=== PATIENT | male | born 1985 | race Caucasian/White ===

== ENCOUNTER 2017-10-16 06:46 | Observation (INO) | payer MEDICAID ==
[2017-10-16] MEDS ORDERED: NS 1,000 ML IV ONE (06:56)
--- NOTE | 2017-10-16 07:18 | CPEKG ---
Heart Rate: 78 RR Interval: 769 P-R Interval: 134 QRSD Interval: 126 QT Interval: 408 QTC Interval: 465 P Felt: 0 QRS Felt: -51 T Wave Felt: 94 EKG Severity - ABNORMAL ECG - EKG Impression: SINUS RHYTHM EKG Impression: VENT PREEXCITATION, LEFT ACCESSORY PATHWAY Electronically Signed By: Ferdinand Forbes 16-Oct-2017 07:33:17
[2017-10-16 07:35] LABS: PLATELET COUNT 149 10^3/uL (150-400)
[2017-10-16] MEDS ORDERED: LIDOCAINE 1% 300 MG/30 ML SDV ONE (08:02)
[2017-10-16] MEDS ORDERED: BUPIVACAINE 0.5% 30 ML SDV ONE (08:02)
[2017-10-16] MEDS ORDERED: HEPARIN 10,000 UNIT/10 ML MDV (1,000 UNIT/ML) ONE (08:02)
[2017-10-16] MEDS ORDERED: ISOPROTERENOL HCL/D5W 0.2 MG/50 ML BAG IV ONE (08:03)
[2017-10-16 08:11] LABS: INR 0.99 (0.83-1.16); PROTIME(PATIENT) 13.3 SEC (12.0-15.0)
[2017-10-16] MEDS ORDERED: MIDAZOLAM 2 MG/2 ML VIAL IVP ONE (08:22)
[2017-10-16] MEDS ORDERED: ACETAMINOPHEN 500 MG TAB PO PRN (08:23)
[2017-10-16] MEDS ORDERED: ONDANSETRON 4 MG/2 ML VIAL IVP PRN ×2 (08:23→11:17)
[2017-10-16] MEDS ORDERED: NALOXONE HCL 0.4 MG/ML INJ IVP PRN (08:23)
[2017-10-16] MEDS ORDERED: ALBUTEROL 3 ML DEYVIAL IH PRN (08:23)
[2017-10-16] MEDS ORDERED: fentaNYL 100 MCG/2 ML INJ IVP PRN (08:23)
--- NOTE | 2017-10-16 08:25 | PDANEPAE ---
ANE History of Present Illness WPW Ablation ANE Past Medical History - Cardiovascular History Hx Hypertension: No Hx Arrhythmias: Yes - Pulmonary History Hx COPD: No Hx Asthma/Reactive Airway Disease: Yes Hx Recent Upper Respiratory Infection: No Hx Sleep Apnea: No ANE Review of Systems Review of systems is: negative Review of Systems: - Exercise capacity Exercise capacity: >=4 METS ANE Patient History - Allergies Allergies/Adverse Reactions: No Known Allergies Allergy (Unverified 10/10/17 10:05) - Home Medications Home Medications: Diltiazem HCl [Cartia XT 180mg] 180 mg PO DAILY 10/10/17 [Last Taken 10/10/17] Fluticasone Nasal [Flonase Nasal [place] (RX)] 1 sprays NASAL DAILY 10/10/17 [ Last Taken 1 Day Ago ~10/15/17] Fluticasone/Salmeter 250/50Mcg [Advair 250/50 (*)] 1 puffs IH BID 10/10/17 [ Last Taken 1 Day Ago ~10/15/17] - Smoking Hx Smoking Status: Never smoked ANE Labs/Vital Signs - Labs Result Diagrams: 10/16/17 07:15 10/16/17 07:15 - Vital Signs Height: 190.5 cm Weight: 117.934 kg ANE Physical Exam - Airway Neck exam: FROM Mallampati Score: Class 2 Mouth exam: normal dental/mouth exam - Pulmonary Pulmonary: clear to auscultation - Cardiovascular Cardiovascular: regular rate and rhythym - ASA Status ASA Status: II ANE Anesthesia Plan Anesthesia Plan: general endotracheal anesthesia
--- NOTE | 2017-10-16 08:25 | PDGENHP ---
History & Physical Chief Complaint: palpitations History of Present Illness: wpw syndrome Relevant Physical Exam: [id number] cta ao3 Cardiorespiratory Assessment: wpw syndrome, for ablation
[2017-10-16] MEDS ORDERED: PROPOFOL/EMULSION 500 MG/50 ML BOTTLE IV ONE (08:33)
[2017-10-16] MEDS ORDERED: fentaNYL 100 MCG/2 ML INJ ONE (08:34)
[2017-10-16] MEDS ORDERED: ROCURONIUM 50 MG/5 ML VIAL ONE ×2 (08:35→10:22)
[2017-10-16] MEDS ORDERED: SEVOFLURANE 250 ML BOTTLE IH ONE (08:43)
[2017-10-16] MEDS ORDERED: DEXAMETHASONE 4 MG/ML VIAL ONE ×2 (09:19)
[2017-10-16] MEDS ORDERED: PHENYLEPHRINE HCL 100 MCG/ML SYR ONE (09:19)
[2017-10-16] MEDS ORDERED: ONDANSETRON 4 MG/2 ML VIAL ONE (09:19)
[2017-10-16] MEDS ORDERED: HEPARIN/DEXTROSE 25,000 UNIT/500 ML BAG ONE (09:28)
[2017-10-16] MEDS ORDERED: SUGAMMADEX SODIUM 200 MG/2 ML VIAL IVP ONE (10:42)
[2017-10-16] MEDS ORDERED: ADENOSINE 6 MG/2 ML VIAL ONE (10:57)
[2017-10-16] MEDS ORDERED: PROTAMINE SULFATE 50 MG/5 ML VIAL IVP ONE (11:02)
--- NOTE | 2017-10-16 11:16 | EPPROC ---
Electrophysiology Procedure Note: ELECTROPHYSIOLOGIC STUDY AND CATHETER MEDIATED ABLATION OF LEFT POSTERIOR ACCESSORY PATHWAY Procedures performed: 94757-44 EP evaluation with RA/RV/LA pace/record, with arrhythmia induction 06919-75 EP evaluation with RA/RV pace record, insert/reposition catheter, with arrhythmia induction 42125 Intracardiac catheter ablation, SVT arrhythmogenic focus 93402 3D mapping Fluoroscopy 57243 Intracardiac echocardiogram 45527-17 Transseptal puncture INDICATION: WPW PROCEDURE: Catheters and anesthesia: The patient arrived in the Electrophysiology Laboratory in the fasting state. The right clavicular region, right groin, and left groin area were prepped and draped in the usual sterile manner. Anesthesiologist Dr. Clementina Deluna administered general anesthesia. Appropriate non-invasive blood pressure, pulse oximetry and end-tidal CO2 monitoring was established. All catheters were placed percutaneously using the modified Seldinger technique , and advanced into position under fluoroscopic guidance. One #6 Albanian hexapolar non-deflectable electrode catheter was inserted into the right atrial appendage via the left femoral vein (2mm spacing; except the proximal ring which was 25cm from the tip used for unipolar recordings). One #7 Albanian deflectable octapolar electrode catheter was advanced to the His-bundle position via the left femoral vein (2mm spacing). One #7 Albanian deflectable quadrapolar catheter was advanced to the anteroseptal right ventricle via the left femoral vein. One #7 Albanian deflectable catheter with 10 pairs of electrodes was placed via the right femoral vein along the tricuspid annulus and proximal CS (Ramonita catheter could not be advanced into the CS). Programmed stimulation of the right atrium, right ventricle and coronary sinus ( left atrium) was performed. Parahisian pacing demonstrated two patterns of retrograde atrial activation during His bundle capture and loss of His bundle capture. This demonstrated the presence of an accessory pathway ( 0500 oclock at the mitral annulus as seen in the BULGARIAN view). 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 In preparation for ablation of the left posterior accessory pathway a transeptal puncture was performed under fluoroscopic and hemodynamic guidance. Intracardiac echocardiography was used during the procedure. Mean left atrial pressure was 10 mm Hg mmHg. A SL1 sheath was inserted into the left atrium. The patient was administered IV heparin bolus and IV heparin continuous infusion prior to the transseptal puncture and the activated clotting time was maintained ~ 300 seconds during the remainder of the procedure. One #7 Albanian mapping catheter with a 4 mm tip electrode and a sensor for the [id number] mapping system was inserted into the SL1 sheath and advanced to the left atrium. Mapping was perfomed during V pacing. A sharp retrograde accessory pathway potential was recorded at 0500 oclock at the mitral annulus as seen in the BULGARIAN view. This preceded the earliest atrial activation by annulus ms. RF#1 was not successful due to catheter instability, was terminated after 10 seconds. RF#2 blocked conduction over AP in 2.5 seconds of initiation of ablation. Additional RF 2-4 were delivered slightly anterior and posterior to RF1 site. Programmed stimulation from the RA, CS, right ventricle during the baseline state post ablation and during infusion of isoproterenol 2 and 4 mcg/min confirmed that there was no conduction over the left posterior accessory pathway and no orthodromic AVRT could be induced. Adenosine 12 mg was administered, there was complete heart block with adenosine , proving there was no antegrade conduction over accessory pathway The catheters were removed. Long sheath was exchanged for short sheath. Protamine was administered. The patient was transferred to the cardiovascular holding area in stable condition. Vascular access sheaths were removed in the laboratory courier post pursestring suture. There were no apparent complications. Results: A. Spontaneous Intervals: Pre ablation SCL 690 ms AH 85 ms HV 20 ms Post ablation SCL 610 ms AH 75 ms HV 40 ms B. Antegrade AV lexii function (decremental pacing) Post ablation FPERP 340 ms WBB CL 330 ms C. Retrograde AV lexii function (decremental pacing) D. Accessory pathway function 1. A single AV accessory pathway was identified at the mitral annulus at 0500 oclock as seen in the BULGARIAN view. 2. The AV accessory pathway conducted in the antegrade and retrograde directions. During atrial pacing 1:1 conduction over the accessory pathway was maintained to a cycle length of 300 ms, block over the AP occurred at 290 ms. During ventricular pacing 1:1 conduction over the accessory pathway was maintained to a cycle length of 280 ms, block over the AP occurred at 270 ms. E. Arrhythmias: 1. Atrial premature beats induced orthodromic AV reentrant tachycardia using the left posterior accessory AV pathway. Tachycardia cycle length: 280 ms AH interval 70 ms HV interval 40ms VA interval (His) 170 ms Shortest VA interval 85 ms at 0500 o clock mitral annulus CONCLUSIONS: 1. A single left posterior accessory pathway, which exhibited conduction in the antegrade and retrograde directions. 2. 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 3. Successful ablation of the left posterior accessory pathway with elimination of AV reentrant tachycardia. 4. No apparent complications. Patient Problems: Problems Problem Status Onset Aowzf-Ukyrwzaqc-Xkczd syndrome Acute
[2017-10-16] MEDS ORDERED: ACETAMINOPHEN 325 MG TAB PO PRN (11:17)
--- NOTE | 2017-10-16 11:25 | POSTANESTH ---
Post Anesthetic Evaluation Cardiovascular Status: Normal, Stable Respiratory Status: Normal, Stable Level of Consciousness/Mental Status: Can Participate in Eval, Alert and Oriented Pain Control: Adequate, Prn Tx Ordered Nausea/Vomiting Control: Adequate, Prn Tx Ordered Complications Possibly Related to Anesthesia: None Noted
--- NOTE | 2017-10-16 12:48 | CPEKG ---
Heart Rate: 79 RR Interval: 759 P-R Interval: 192 QRSD Interval: 92 QT Interval: 408 QTC Interval: 468 P Shannon: 68 QRS Shannon: 35 T Wave Shannon: -29 EKG Severity - ABNORMAL ECG - EKG Impression: SINUS RHYTHM EKG Impression: NONSPECIFIC T ABNORMALITIES, INFERIOR LEADS EKG Impression: ST ELEV, PROBABLE NORMAL EARLY REPOL PATTERN EKG Impression: Ventricular pre-excitation seen on previous EKG not seen. T-wave abnormalities EKG Impression: are likely related to T-wave memory Electronically Signed By: Ferdinand Forbes 16-Oct-2017 12:59:31
--- NOTE | 2017-10-16 14:35 | ASMTCMCOM ---
CM Note CM Note Notes: Pt is admitted for wpw syndrome and ablation. Anticipate d/c with no CM needs but will continue to follow for any change in needs. Date Signed: 10/16/2017 02:34 PM Electronically Signed By:QUINN Moya
[2017-10-16] MEDS: FLUTICASONE/SALMETER 250/50MCG DISKUS IH SCH (21:00)
[2017-10-16] MEDS ORDERED: POLYETHYLENE GLYCOL 3350 17 GM PKT PO PRN (21:15)
[2017-10-16] MEDS ORDERED: BISACODYL 10 MG SUPP PR PRN (21:15)
[2017-10-16] MEDS ORDERED: MAGNESIUM HYDROXIDE 30 ML UDCUP PO PRN (21:15)
[2017-10-16] MEDS ORDERED: LACTULOSE 20 GM/30 ML UDCUP PO PRN (21:15)
[2017-10-17 04:23] LABS: PLATELET COUNT 146 10^3/uL (150-400)
[2017-10-17 04:30] VITALS: RESP 18
[2017-10-17 04:34] LABS: CREATINE KINASE 78 IU/L (0-224)
[2017-10-17 04:42] LABS: INR 1.05 (0.83-1.16); PROTIME(PATIENT) 13.9 SEC (12.0-15.0)
[2017-10-17 07:38] VITALS: BP 106/55; PULSE 76; TEMP 98.4; O2SAT 94
--- NOTE | 2017-10-17 08:54 | CPEKG ---
Heart Rate: 82 RR Interval: 732 P-R Interval: 196 QRSD Interval: 92 QT Interval: Invalid QTC Interval: Invalid P [place]: 44 QRS [place]: 25 T Wave [place]: -12 EKG Severity - ABNORMAL ECG - EKG Impression: SINUS RHYTHM EKG Impression: NONSPECIFIC T ABNORMALITIES, INFERIOR LEADS EKG Impression: No ventricular preexcitation Electronically Signed By: Ferdinand Forbes 17-Oct-2017 10:26:41
[2017-10-17] MEDS ORDERED: SENNOSIDES/DOCUSATE SODIUM TAB PO SCH (09:00)
[2017-10-17] MEDS ORDERED: ASPIRIN 81 MG CHEWABLE TAB PO SCH (09:00)
[2017-10-17] MEDS ORDERED: FLUTICASONE NASAL 120 SPRAYS/16 GM MDI EACHNARE SCH (09:00)
[2017-10-17] MEDS: FLUTICASONE/SALMETER 250/50MCG DISKUS IH SCH (09:01)
[2017-10-17] MEDS ORDERED: FLU VACC QS 2017-18 (3YR+)/PF 0.5 ML SYR (FLUARIX QUAD) IM ONE (09:27)
--- NOTE | 2017-10-17 10:26 | ECHO ---
[email or web address] [address] [address] Main: [phone] Fax: Transthoracic Echocardiogram Name: MEAGAN TAVERAS MR#: [id number] Study Date: 10/17/2017 Study Time: 08:27 AM Date of : 1985 Age: 32 year(s) Height: 190.5 cm (75 in.) Weight: 117.94 kg (260 lb.) BSA: 2.45 m2 Gender: Male Examination: Echo Indication: F/U post EP study Image Quality: Contrast: Requested by: Ferdinand Forbes BP: 106 mmHg/55 mmHg Heart Rate: Rhythm: Indication: F/U post EP study Procedure Staff Mold Dumper: Jazzy Chew RDCS Reading Physician: Ferdinand Forbes Requesting Provider: Conclusions: Normal global systolic LV function. Trivial to mild mitral regurgitation. Trivial to mild tricuspid valve regurgitation. No pericardial effusion. Measurements: Chambers Valvular Assessment AV/MV Valvular Assessment TV/PV Normal Normal Normal Name Value Range Name Value Range Name Value Range Ao Luz Elena (MM): 3.5 cm (2.2 cm-3.7 AV Vmax: 1.24 m/s (1 m/s-1.7 cm) m/s) IVSd (2D): 0.8 cm (0.6 cm-1.1 AV maxP mmHg ( - ) cm) MV E Vmax: 0.80 m/s ( - ) LVDd (2D): 5.9 cm (4.2 cm-5.9 MV A Vmax: 0.46 m/s ( - ) cm) MV E/A: 1.74 ( - ) LVDs (2D): 4.0 cm (2.1 cm-4 cm) LVPWd (2D): 0.7 cm (0.6 cm-1 cm) LVEF (MOD4): 68 % (>=55 %) EF Range: 65-70 % Continued Measurements: Chambers Valvular Assessment AV/MV Name Value Name Value LADs: 4.2 cm MV E' Septal: 0.07 m/s LADs Lon.4 cm MV E/E' Septal: 11.00 LA Area: 18.8 cm2 MV E/E' Lateral: 5.20 Patient: MEAGAN TAVERAS Study Date: 10/17/2017 Page 1 of 2 08:27 AM Additional Vessels Name Value Ao Ascendin.0 cm Findings: Left Ventricle: Normal size left ventricle. No LV hypertrophy. Normal global systolic LV function. The ejection fraction is estimated to be 65-70 %. No regional wall motion abnormality. Right Ventricle: Normal size right ventricle. Left Atrium: The left atrium is normal in size. Right Atrium: The right atrium is normal in size. Mitral Valve: The mitral valve is normal in appearance and function. Trivial to mild mitral regurgitation. Aortic Valve: The aortic valve is normal in appearance and function. Tricuspid Valve: The tricuspid valve is normal in appearance and function. Trivial to mild tricuspid valve regurgitation. Pulmonic Valve: The pulmonic valve is normal in appearance and function. Trivial pulmonic valve regurgitation. Aorta: The aorta is normal. Pericardium: No pericardial effusion. (No Signature Object) Patient: MEAGAN TAVERAS Study Date: 10/17/2017 Page 2 of 2 08:27 AM [id number]
--- NOTE | 2017-10-17 10:45 | ASMTLACE ---
LACE Length of stay for Answers: Less than 1 day current admission Acuity / Level of Answers: No Care: Did the patient have an inpatient admission? Comorbidities - select Answers: Other all that apply # of Emergency department Answers: 0 visits in the last 6 months Score: 1 Date Signed: 10/17/2017 10:44 AM Electronically Signed By:Holly Correa RN
--- NOTE | 2017-10-17 10:48 | GDS ---
[f rep st] DISCHARGE SUMMARY ADMISSION DIAGNOSES: 1. Chxld-Zamshgojo-Lbepm. 2. Asthma. DISCHARGE DIAGNOSIS: 1. Txkdz-Aqdgzelgb-Slpjm. 2. Status post electrophysiology study with ablation for Zjdmo-Tgxbiqvbw-Aqgga. 3. Asthma. PROCEDURE PERFORMED DURING HOSPITALIZATION: 1. Electrocardiogram. 2. Electrophysiology study, which found a single left posterior accessary pathway, which exhibited conduction in the antegrade and retrograde direction. 3. Successful ablation of the left posterior accessory pathway with the elimination of arteriovenous reentry tachycardia. 4. Echocardiogram. BRIEF HISTORY: Please see H and P. Briefly, the patient is a 32-year-old male , recent hospitalization at [facility] for asthma exacerbation, and developed a supraventricular tachycardia with rates up to 200 beats per minute. He received 2 boluses of adenosine to terminate the arrhythmia. He was sent by the Emergency Department to Cardiology for further evaluation. After reviewing electrocardiogram, Dr. Forbes determined the patient had delta waves in V1 through V6, making more than likely his arrhythmia was caused by WPW syndrome. Options of treatment including medication and antiarrhythmic therapy and ablation were discussed with the patient. The patient wanted to proceed with EP and potential ablation procedure. HOSPITAL COURSE: The patient admitted through CVC, prepped for procedure, and taken to electrophysiology lab. There, Dr. Forbes performed EP procedure, successfully identifying a single left posterior accessary pathway which exhibit conduction in the antegrade and retrograde direction. At this point, he was able to ablate this pathway, which eliminated arteriovenous reentry tachycardia. No complications. The patient was transferred back to the CVC, and ultimately to the PCU for overnight observation. There, he has remained in sinus rhythm with no malignant arrhythmias or pauses. He denies any chest pain or shortness of breath. He has been up and walking the unit without any difficulties. PHYSICAL EXAMINATION: GENERAL APPEARANCE TODAY: Medium built, mildly obese, male. He is alert and oriented to person, place, time, situation. Appears to be under no acute distress. CURRENT VITAL SIGNS: Blood pressure 106 /55, heart rate of 76, respirations 18, saturating 94% on room air, temperature of 36.9 degrees Celsius. HEENT: Head is normocephalic. Lips and tongue are pink and moist with no signs of cyanosis. Conjunctivae pink. NECK: Trachea is midline, +2 carotid pulses bilateral. No auscultated bruits. No jugular vein distention. RESPIRATORY: Lungs clear to auscultation. No rhonchi, rales or wheezes. No accessory muscle use. No intercostal muscle retraction noted. CARDIAC: Regular rate, regular rhythm, S1, S2. No S3, S4, gallops, rubs or murmurs noted. ABDOMEN: Soft, nontender, bowel sounds x4 quadrants. No organomegaly. No palpable masses. SKIN: [place], warm, dry. No cyanosis. No clubbing. No peripheral edema. VASCULAR: +2 carotids bilateral, +2 radials bilateral, +1 dorsal pedal and posterior tibial pulses bilateral. : Catheter insertion sites, right and left groin sites, with no redness, swelling , drainage, ecchymosis, or hematoma. No auscultated bruit noted over either site. LABORATORY STUDIES: Laboratory studies drawn today show WBC of 9.14, hemoglobin of 15.0, hematocrit 43.9, platelet count 146. INR was noted to be 1.05, sodium 141, potassium 4.6, chloride 106, CO2 26, BUN 16, creatinine 0.9, glucose 99, calcium 8.7. CK of 78, CK-MB of 1.21, troponin of 0.307 noted. Expected to have elevated cardiac enzymes post electrophysiology and ablation procedure. STUDIES: EP and ablation procedure as mentioned above. Morning electrocardiogram shows sinus rhythm, nonspecific T-wave abnormalities in inferior leads, no delta waves noted at this time. Preliminary echocardiogram done this morning post ablation showing normal LV systolic function, normal ejection fraction, no wall motion abnormalities, no pleural effusion. DISCHARGE DISPOSITION: The patient will be discharged home in stable condition. He is under activity restrictions of not lifting more than 10 pounds for the next week, and no strenuous activity for the next 2 weeks. DISCHARGE MEDICATIONS: Please see discharge med reconciliation sheet. The patient notes that he has been discontinued on his home diltiazem. He has been started on aspirin therapy at 81 mg p.o. daily, which he will take for the next 6 weeks. DISCHARGE INSTRUCTIONS: Post EP/ablation discharge instructions went over with the patient and his family, including monitoring for signs of infection bleeding precautions, activity restrictions, medication compliancy, DVT precautions. He has also been encouraged to continue using incentive spirometer for the next 2 days while awake. He has been reminded that due to recent ablation puts him in a higher coagulation state, and so he has been encouraged for every 35-45 minutes while awake. He is supposed to get up and walk for few minutes. At the time of discharge, the patient verbalizes understanding of all discharge instructions, and has no questions. He has a followup appointment set with Dr. Forbes on November 16. He has been told that if any problems or concerns post discharge, he is to notify our office or return to the hospital. At the time of discharge, no questions or concerns. Total time spent on discharge greater than 30 minutes. /[id number]/MODL MTDD
--- NOTE | 2017-10-17 13:35 | ASDISCHSUM ---
Discharge Information Plan Status:Home with No Needs Medically Cleared to Leave:10/16/2017 Discharge Date:10/17/2017 10:48 AM CM D/C Disposition:Home, Routine, Self-Care ADT D/C Disposition:Home, Routine, Self-Care Projected Discharge Date:10/17/2017 10:48 AM Transportation at D/C: Discharge Delay Reason: Follow-Up Date:10/17/2017 10:48 AM Discharge Slot: Final Diagnosis: Placement Information Patient Contact Information Contact Name:SADAF Relationship:Father Address: Work Phone: City: [facility] Phone: State/[place] Code: Email: Financial Information Financial Class: Primary Plan Desc:[employer] [place] Primary Plan Number:[id number] Secondary Plan Desc: Secondary Plan Number: Assessment Information [facility] CM Progress Note CM Note CM Note Notes: Pt is admitted for wpw syndrome and ablation. Anticipate d/c with no CM needs but will continue to follow for any change in needs. Date Signed: 10/16/2017 02:34 PM Electronically Signed By:QUINN Moya LACE LACE Length of stay for Answers: Less than 1 day current admission Acuity / Level of Answers: No Care: Did the patient have an inpatient admission? Comorbidities - select Answers: Other all that apply # of Emergency department Answers: 0 visits in the last 6 months Score: 1 Date Signed: 10/17/2017 10:44 AM Electronically Signed By:Holly Correa RN Intervention Information
== END 2017-10-17 10:48 | disposition home or self-care (01) ==
LOC: FCATH 06:46 → F2W 11:19
PROVIDERS: ADMIT Internal Medicine Cardiovascular Disease; ATTEND Internal Medicine Cardiovascular Disease
PROC: 4A023FZ Measurement of Cardiac Rhythm, Percutaneous Approach (ICD-10-PCS; principal; 2017-10-16)
PROC: 02K83ZZ Map Conduction Mechanism, Percutaneous Approach (ICD-10-PCS; principal; 2017-10-16)
PROC: 5A1213Z Performance of Cardiac Pacing, Intermittent (ICD-10-PCS; principal; 2017-10-16)
DX: I45.6 Pre-excitation syndrome (principal); J45.909 Unspecified asthma, uncomplicated
CPT/HCPCS: 90471; 93005; 93306; 93613; 93621; 93623; 93653; 93662; C1730; C1732; C1893; C1731; C1759; G0008; J0153; J1100; J1644; J2250; J2370; J2405; J2704; J2720; J3010

== ENCOUNTER 2017-10-23 12:44 | Emergency (ER) | payer MEDICAID ==
--- NOTE | 2017-10-23 12:50 | CPEKG ---
Heart Rate: 90 RR Interval: 667 P-R Interval: 192 QRSD Interval: 96 QT Interval: 364 QTC Interval: 446 P Freeland: 45 QRS [place]eland: 26 T Wave Freeland: 52 EKG Severity - NORMAL ECG - EKG Impression: SINUS RHYTHM Electronically Signed By: Ferdinand Forbes 27-Oct-2017 14:38:22
--- NOTE | 2017-10-23 13:29 | EDPHY ---
H & P Stated Complaint: resolved CP Time Seen by Provider: 10/23/17 12:53 HPI/ROS: CHIEF COMPLAINT: Brief chest pain following ablation HISTORY OF PRESENT ILLNESS: This is a 32-year-old male who underwent an ablation for Dlakp-Rhtmrsudf-Ohfya 1 week ago. The procedure was performed by Dr. Forbes. He had been doing well since then. Today he returned to work. 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 He had 2 brief pinching sensations in the left upper chest, about 2 in below his collar bone in the midline. He also had a third similar sensation--lower in the left chest; this one was so brief that he is not sure it even happened. He has not had any further chest discomfort. He did not feel short of breath, sick to his stomach , or diaphoretic when this occurred. He did not feel lightheaded or dizzy. He has not been aware of any cardiac arrhythmia. He was transported to the emergency department by ambulance. He currently feels fine, aside from being tired. REVIEW OF SYSTEMS: A ten point review of systems was performed and is negative with the exception of the items mentioned in the HPI. 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 No tobacco use. General Appearance: Alert. Vital signs reviewed. Blood pressure 134/80. Eyes: Pupils equal and round, no conjunctival injection, no discharge. Anicteric. ENT, Mouth: Mucous membranes are moist, no oropharyngeal erythema or edema. Neck: No lymphadenopathy, supple. No JVD. Respiratory: Lungs are clear to auscultation; no wheezes, rales, or rhonchi. Cardiovascular: Regular rate and rhythm; no murmur, rub, or gallop. Gastrointestinal: Abdomen is soft and nontender, no masses or organomegaly, bowel sounds normal. Skin: Warm and dry, no rashes on exposed skin, normal color. Back: Nontender to palpation over the thoracolumbar spine. No CVAT. Extremities: No lower extremity edema, no calf tenderness or swelling. Neurological: Alert and oriented. Moving all four extremities easily and equally. Psychiatric: Normal affect. - Personal History Current Tetanus/Diphtheria Vaccine: Yes Current Tetanus Diphtheria and Acellular Pertussis (TDAP): Yes - Medical/Surgical History Hx Asthma: Yes Hx Chronic Respiratory Disease: No Hx Diabetes: No Hx Cardiac Disease: Yes Hx Renal Disease: No Hx Cirrhosis: No Hx Alcoholism: No Hx HIV/AIDS: No Hx Splenectomy or Spleen Trauma: No Other PMH: Asthma, WPW, ablation a week ago, depression as a teenager - Social History Smoking Status: Never smoked Constitutional: Initial Vital Signs Temperature (C) 36.9 C 10/23/17 12:44 Heart Rate 85 10/23/17 12:44 Respiratory Rate 12 10/23/17 12:44 Blood Pressure 134/80 H 10/23/17 12:44 O2 Sat (%) 97 10/23/17 12:44 O2 Delivery Mode Room Air Allergies/Adverse Reactions: No Known Allergies Allergy (Unverified 10/10/17 10:05) Home Medications: Medication Instructions Recorded Fluticasone Nasal [Flonase Nasal 1 sprays NASAL DAILY 10/10/17 [place]] Fluticasone/Salmeter 250/50Mcg 1 puffs IH BID 10/10/17 [Advair 250/50 (*)] Acetaminophen [Tylenol 325mg (*)] 325 - 650 mg PO Q4HRS PRN tab 10/17/17 Aspirin [Aspirin 81mg (*)] 81 mg PO DAILY tab.chew 10/17/17 Medical Decision Making - Diagnostics EKG Interpretation: 12 lead EKG is interpreted in Trace master View by emergency department physician. Sinus rhythm rate of 90. ED Course/Re-evaluation: EKG shows NSR at 90, no ischemic changes. Patient without chest pain in ED. He had two brief episodes of pain, no other associated symptoms. I do not suspect a cardiac etiology and do not think that his recent ablation is the cause of this pain. The pain was likely musculoskeletal. He has no signs/symptoms of infection and I am not concerned about pneumonia or bronchitis. PE is highly unlikely with this presentation-- he is low risk. I feel that he can safely return home with no further ED evaluation. He understands the danger signs that should prompt him to return. He will follow up with cardiology as planned. Differential Diagnosis: Chest pain including but not limited to myocardial ischemia, pulmonary embolus, chest wall pain, pleural inflammation and pulmonary infectious causes. - Data Points Laboratory Results: Laboratory Results 10/23/17 12:44 10/23/17 12:44 Departure - Departure Disposition: Home, Routine, Self-Care Clinical Impression: Chest pain Qualifiers: Chest pain type: other chest pain Qualified Code(s): R07.89 - Other chest pain Condition: Good Instructions: Noncardiac Chest Pain (ED) Additional Instructions: Follow up with Dr. Forbes as planned. Referrals: Ferdinand Forbes MD [Medical Doctor] - As per Instructions Stand Alone Forms: Work Excuse
[2017-10-23 13:34] LABS: PLATELET COUNT 139 10^3/uL (150-400)
[2017-10-23 14:55] VITALS: BP 118/78; PULSE 80; RESP 18; TEMP 98.1; O2SAT 98
== END 2017-10-23 14:55 | disposition home or self-care (01) ==
LOC: EDUNIT#
DX: R07.89 Other chest pain (principal); J45.909 Unspecified asthma, uncomplicated; Z79.82 Long term (current) use of aspirin

== ENCOUNTER 2017-12-07 22:44 | Emergency (ER) | payer MEDICAID ==
[2017-12-07 22:51] VITALS: BP 143/92; PULSE 90; RESP 16; TEMP 97.3; O2SAT 94
--- NOTE | 2017-12-07 22:51 | EDPHY ---
H & P Stated Complaint: red and discoloration in groin area Time Seen by Provider: 12/07/17 22:50 HPI/ROS: HPI CHIEF COMPLAINT: Red irritation to the right inguinal region. HISTORY OF PRESENT ILLNESS: This patient 32-year-old male, is otherwise healthy does have remote history of WPW status post ablation in September he presents emergency room with a rash to his right groin region. States started bothering worse tonight movie theater he decided come the emergency room to have this evaluated. It is right inguinal fold he has a yeast infection it is present with some erythema. Past Medical History: Denies significant medical history except for WPW. Past Surgical History: Denies significant surgical history Social History: Denies drugs alcohol tobacco. Family History: Noncontributory ROS REVIEW OF SYSTEMS: A comprehensive 10 point review of systems is otherwise negative aside from elements mentioned in the history of present illness. Exam Constitutional appears well nontoxic no acute distress triage nursing summary reviewed, vital signs reviewed, awake/alert. Eyes normal conjunctivae and sclera, EOMI, PERRLA. HENT normal inspection, atraumatic, moist mucus membranes, no epistaxis, neck supple/ no meningismus, no raccoon eyes. Respiratory clear to auscultation bilaterally, normal breath sounds, no respiratory distress, no wheezing. Cardiovascular rate normal, regular rhythm, no murmur, no edema, distal pulses normal. Gastrointestinal soft, non-tender, no rebound, no guarding, normal bowel sounds, no distension, no pulsatile mass. Genitourinary no CVA tenderness. Musculoskeletal no midline vertebral tenderness, full range of motion, no calf swelling, no tenderness of extremities, no meningismus, good pulses, neurovascularly intact. Skin right inguinal region: Shows area of 4 cm x 4 cm of yeast. Erythematous with some white discharge. No signs of cellulitis purpura petechia. Neurologic awake, alert and oriented x 3, AAOx3, moves all 4 extremities equally, motor intact, sensory intact, CN II-XII intact, normal cerebellar, normal vision, normal speech. Psychiatric normal mood/affect. Heme/Lymph/Immune no lymphadenopathy. Differential Diagnosis: Includes but is not limited to in a particular order inguinal yeast infection, cellulitis Medical Decision Making: Plan for this patient will placed on Diflucan p. O., and clotrimazole cream. Recommends keep it dry and clean as much as possible. Source: Patient - Personal History Current Tetanus/Diphtheria Vaccine: Yes Current Tetanus Diphtheria and Acellular Pertussis (TDAP): Yes - Medical/Surgical History Hx Asthma: Yes Hx Chronic Respiratory Disease: No Hx Diabetes: No Hx Cardiac Disease: Yes Hx Renal Disease: No Hx Cirrhosis: No Hx Alcoholism: No Hx HIV/AIDS: No Hx Splenectomy or Spleen Trauma: No Other PMH: Asthma, WPW, ablation a week ago, depression as a teenager - Social History Smoking Status: Never smoked Constitutional: Initial Vital Signs Temperature (C) 36.3 C 12/07/17 22:48 Heart Rate 90 12/07/17 22:48 Respiratory Rate 16 12/07/17 22:48 Blood Pressure 143/92 H 12/07/17 22:48 O2 Sat (%) 94 12/07/17 22:48 O2 Delivery Mode Room Air Allergies/Adverse Reactions: No Known Allergies Allergy (Verified 12/07/17 22:50) Home Medications: Medication Instructions Recorded Fluticasone Nasal [Flonase Nasal 1 sprays NASAL DAILY 10/10/17 [place]] Fluticasone/Salmeter 250/50Mcg 1 puffs IH BID 10/10/17 [Advair 250/50 (*)] Acetaminophen [Tylenol 325mg (*)] 325 - 650 mg PO Q4HRS PRN tab 10/17/17 Aspirin [Aspirin 81mg (*)] 81 mg PO DAILY tab.chew 10/17/17 Clotrimazole 1% [Lotrimin 1%] 12 gm TP BID #1 cream 12/07/17 Fluconazole [Diflucan] 200 mg PO DAILY #7 tablet 12/07/17 Departure - Departure Disposition: Home, Routine, Self-Care Clinical Impression: Yeast infection Condition: Good Instructions: Yeast Infection (ED) Additional Instructions: 1. Keep this area dry and clean as much as possible. Referrals: Barb Mueller PA [Primary Care Provider] - As per Instructions Prescriptions: Clotrimazole 1% [Lotrimin 1%] 12 gm TP BID #1 cream Fluconazole [Diflucan] 200 mg PO DAILY #7 tablet
[2017-12-07] MEDS ORDERED: FLUCONAZOLE 150 MG TAB PO ONE (22:57)
== END 2017-12-07 23:09 | disposition home or self-care (01) ==
DX: B37.9 Candidiasis, unspecified (principal); J45.909 Unspecified asthma, uncomplicated; Z79.82 Long term (current) use of aspirin

== ENCOUNTER 2017-12-18 12:28 | Emergency (ER) | payer MEDICAID ==
[2017-12-18] MEDS ORDERED: IPRATROPIUM/ALBUTEROL 3 ML DEYVIAL ONE (13:01)
[2017-12-18] MEDS ORDERED: IPRATROPIUM/ALBUTEROL 3 ML DEYVIAL IH ONE (13:01)
[2017-12-18] MEDS ORDERED: ALBUTEROL 3 ML DEYVIAL IH ONE (13:45)
--- NOTE | 2017-12-18 14:22 | EDPHY ---
H & P Time Seen by Provider: 12/18/17 12:44 HPI/ROS: CHIEF COMPLAINT: Asthma HISTORY OF PRESENT ILLNESS: 32-year-old male presents to the emergency department feeling short of breath. He has a known history of asthma. 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 He did not have any pain in his chest. He denies a headache or other URI symptoms. No fevers or chills. He did try using his albuterol inhaler without relief. No recent travel. No calf pain or swelling. No pleuritic chest pain. REVIEW OF SYSTEMS: Constitutional: No fever, no chills. Eyes: No double or blurry vision. ENT: No sore throat. Respiratory: Cough, shortness of breath Cardiac: No chest pain. Gastrointestinal: No abdominal pain, vomiting or diarrhea. Genitourinary: No dysuria. Musculoskeletal: No neck or back pain. Skin: No rashes. Neurological: No headache. Past Medical/Surgical History: Asthma Social History: Single and lives in [place]. Smoking Status: Never smoked Physical Exam: General Appearance: Alert, no distress. 92% on room air. Afebrile. Eyes: Pupils equal and round. Extraocular motions are all intact. ENT: Mouth: Mucous membranes moist. Respiratory: Diffuse expiratory rhonchi throughout. No rales. No respiratory distress. Cardiovascular: Regular rate and rhythm. Gastrointestinal: Abdomen is soft and nontender, no masses, no rebound or guarding, bowel sounds normal. Neurological: Alert and oriented x 3, cranial nerves II through XII grossly intact Skin: Warm and dry, no rashes. Musculoskeletal: Nontender to palpate along the cervical, thoracic or lumbar spine. Neck is supple. Extremities: Full range of motion and no peripheral edema. Psychiatric: Patient is oriented X 3, there is no agitation. Constitutional: Initial Vital Signs Temperature (C) 36.5 C 12/18/17 12:32 Heart Rate 96 12/18/17 12:32 Respiratory Rate 20 12/18/17 12:32 Blood Pressure 117/78 12/18/17 12:32 O2 Sat (%) 92 12/18/17 12:32 O2 Delivery Mode Room Air Allergies/Adverse Reactions: No Known Allergies Allergy (Verified 12/18/17 12:31) Home Medications: Medication Instructions Recorded Fluticasone Nasal [Flonase Nasal 1 sprays NASAL DAILY 10/10/17 [place]] Fluticasone/Salmeter 250/50Mcg 1 puffs IH BID 10/10/17 [Advair 250/50 (*)] Acetaminophen [Tylenol 325mg (*)] 325 - 650 mg PO Q4HRS PRN tab 10/17/17 Aspirin [Aspirin 81mg (*)] 81 mg PO DAILY tab.chew 10/17/17 Albuterol [Proventil Inhaler HFA 1 - 2 puffs IH Q4PRN PRN #1 mdi 12/18/17 (*)] Xopenex 12/18/17 predniSONE 60 mg PO DAILY 5 Days tab 12/18/17 Medical Decision Making - Diagnostics Imaging Results: Imaging Impressions Chest X-Ray 12/18/17 13:17 Impression: Mild airways disease. No pneumonia. Imaging: I viewed and interpreted images myself ED Course/Re-evaluation: 32-year-old male presents to the emergency department feeling short of breath. The patient was given DuoNeb followed by albuterol nebulizer. He was feeling much better. He still continued to have occasional expiratory wheezing. Chest x-ray was ordered by the nurse which revealed no evidence of pneumonia. Patient will continue his albuterol inhaler. We will add prednisone. I do not think antibiotics are indicated. He has no evidence of pneumonia on his chest x -ray. He is afebrile. The patient was tolerating p.o. Fluids he is comfortable being discharged home. Differential Diagnosis: Shortness of breath including but not limited to pulmonary infectious process, COPD, asthma, pulmonary embolus and congestive heart failure. - Data Points Medications Given: Discontinued Medications Albuterol (Proventil Neb) 3 ml IH EDNOW ONE Stop: 12/18/17 13:46 Last Admin: 12/18/17 13:54 Dose: 3 ml Albuterol/Ipratropium (Duoneb) 3 ml IH EDNOW ONE Stop: 12/18/17 13:02 Last Admin: 12/18/17 13:03 Dose: 3 ml Departure - Departure Disposition: Home, Routine, Self-Care Clinical Impression: Acute bronchitis Qualifiers: Bronchitis organism: unspecified organism Qualified Code(s): J20.9 - Acute bronchitis, unspecified Condition: Good Instructions: Acute Bronchitis (ED) Additional Instructions: Albuterol inhaler 2 puffs every 4 hr for 1 week and then as needed. Prednisone daily for 5 days. Return to the emergency department if you feel short of breath, chest pain, or if you feel worse in any way. Referrals: Barb Mueller PA [Primary Care Provider] - As per Instructions Prescriptions: Albuterol [Proventil Inhaler HFA (*)] 1 - 2 puffs IH Q4PRN PRN #1 mdi PRN Reason: P.r.n. Dyspnea predniSONE 60 mg PO DAILY 5 Days tab
[2017-12-18 14:56] VITALS: BP 107/73; PULSE 94; RESP 18; TEMP 97.9; O2SAT 94
== END 2017-12-18 14:56 | disposition home or self-care (01) ==
DX: J20.9 Acute bronchitis, unspecified (principal); J45.909 Unspecified asthma, uncomplicated; Z79.82 Long term (current) use of aspirin
CPT/HCPCS: J7613